=== PATIENT | female | born 1990 | race Caucasian/White ===

== ENCOUNTER 2018-05-19 21:45 | Emergency (ER) | payer OTHER | END 2018-05-20 01:00 | disposition left against medical advice (07) | LOC: FTE 05-20 01:00 | DX: O99.89 Other specified diseases and conditions complicating pregnancy, childbirth and the puerperium (principal); M54.5 Low back pain; O99.512 Diseases of the respiratory system complicating pregnancy, second trimester; J45.909 Unspecified asthma, uncomplicated; Z3A.16 16 weeks gestation of pregnancy; Z87.891 Personal history of nicotine dependence | CPT/HCPCS: 99282; Z7502 ==

== ENCOUNTER 2018-10-07 11:00 | Inpatient (IN) | payer MEDICAID, OTHER ==
[2018-10-07] MEDS ORDERED: BUTORPHANOL 2 MG INJ IV (12:00)
[2018-10-07 13:58] LABS: AMPHETAMINE/METHAMPHETAMINE NEGATIVE (NEGATIVE); BARBITURATES NEGATIVE (NEGATIVE); BENZODIAZEPINES NEGATIVE (NEGATIVE); CANNABINOIDS POSITIVE (NEGATIVE); COCAINE NEGATIVE (NEGATIVE); OPIATES NEGATIVE (NEGATIVE)
[2018-10-07] MEDS: LACTATED RINGER'S 1,000 ML IV (17:24)
[2018-10-07] MEDS: ACETAMINOPHEN 325 MG TAB PO (18:11)
[2018-10-08] MEDS: LACTATED RINGER'S 1,000 ML IV ×2 (02:04→03:32)
[2018-10-08] MEDS: ACETAMINOPHEN 325 MG TAB PO (07:31)
[2018-10-08] MEDS ORDERED: PRENATAL VITAMIN PO (09:00)
[2018-10-08] MEDS ORDERED: FERROUS SULFATE (EC) 325 MG TAB PO (09:00)
== END 2018-10-08 12:30 | disposition home or self-care (01) | DRG 833 ==
LOC: OBT 11:00 → L-D 11:01 → OBT 11:30 → L-D 11:30 → PP1 17:39
DX: O47.03 False labor before 37 completed weeks of gestation, third trimester (principal); Z3A.36 36 weeks gestation of pregnancy
CPT/HCPCS: 76815; 76816; 76818; 80307